=== PATIENT | male | born 1985 | race Two or more races ===

== ENCOUNTER 2016-06-03 10:49 | Emergency (ER) | payer MEDICAID ==
[~2016-06-03] VITALS: Ht 177.8 cm; Wt 77.6 kg
[2016-06-03 11:04] VITALS: BP 108/68
[2016-06-03] MEDS ORDERED: cefTRIAXone SOD 1,000 MG VL IM ONE (12:00)
== END 2016-06-03 13:20 | disposition home or self-care (01) ==
LOC: ER 10:49
DX: J20.9 Acute bronchitis, unspecified (principal); J02.9 Acute pharyngitis, unspecified; F17.210 Nicotine dependence, cigarettes, uncomplicated
CPT/HCPCS: 96372; 99283; J0696

== ENCOUNTER 2016-12-15 13:44 | Emergency (ER) | payer MEDICAID ==
[~2016-12-15] VITALS: Ht 180.3 cm; Wt 68.0 kg
[2016-12-15 13:56] VITALS: BP 130/89
[2016-12-15] MEDS ORDERED: cefTRIAXone SOD 1,000 MG VL IM ONE (14:30)
== END 2016-12-15 15:04 | disposition home or self-care (01) ==
LOC: ER 13:47
DX: N34.2 Other urethritis (principal); A64 Unspecified sexually transmitted disease; F17.210 Nicotine dependence, cigarettes, uncomplicated
CPT/HCPCS: 96372; 99283; J0696

== ENCOUNTER 2017-01-18 12:15 | Emergency (ER) | payer MEDICAID ==
[~2017-01-18] VITALS: Ht 180.3 cm; Wt 68.0 kg
[2017-01-18 12:21] VITALS: BP 150/100
[2017-01-18] MEDS ORDERED: AZITHROMYCIN 250 MG TAB PO ONE (14:30)
[2017-01-18] MEDS ORDERED: cefTRIAXone SOD 500 MG VL IM ONE (14:30)
== END 2017-01-18 14:48 | disposition home or self-care (01) ==
LOC: ER 12:15
DX: N34.2 Other urethritis (principal); Z20.2 Contact with and (suspected) exposure to infections with a predominantly sexual mode of transmission; F17.210 Nicotine dependence, cigarettes, uncomplicated
CPT/HCPCS: 96372; 99283; J0696

== ENCOUNTER 2017-01-21 17:26 | Emergency (ER) | payer MEDICAID ==
[~2017-01-21] VITALS: Ht 180.3 cm; Wt 68.0 kg
[2017-01-21 17:42] VITALS: BP 140/86
== END 2017-01-21 18:35 | disposition left against medical advice (07) ==
LOC: ER 17:26
DX: R36.9 Urethral discharge, unspecified (principal); Z53.21 Procedure and treatment not carried out due to patient leaving prior to being seen by health care provider

== ENCOUNTER 2017-02-12 14:01 | Emergency (ER) | payer MEDICAID ==
[~2017-02-12] VITALS: Ht 172.7 cm; Wt 59.0 kg
[2017-02-12 14:16] VITALS: BP 154/93
[2017-02-12] MEDS ORDERED: cefTRIAXone 1GM/50ML D5W 50 ML IV ONE (20:45)
[2017-02-12] MEDS ORDERED: HYDROcodone-ACET 10/325MG TAB PO ONE (20:45)
[2017-02-12] MEDS ORDERED: AZITHROMYCIN 250 MG TAB PO ONE (21:15)
[2017-02-12] MEDS ORDERED: VITAMINS A & D (TOPICAL) OINT 5GM TOP ONE (21:41)
== END 2017-02-12 21:53 | disposition home or self-care (01) ==
LOC: ER 14:01
DX: S61.411A Laceration without foreign body of right hand, initial encounter (principal); L03.113 Cellulitis of right upper limb; A64 Unspecified sexually transmitted disease; F17.210 Nicotine dependence, cigarettes, uncomplicated; X58.XXXA Exposure to other specified factors, initial encounter; Y93.89 Activity, other specified; Y99.8 Other external cause status; Y92.89 Other specified places as the place of occurrence of the external cause
CPT/HCPCS: 73130; 96365; 99284; J0696; J7030